=== PATIENT | male | born 1990 ===

== ENCOUNTER → 2025-01-24 | Outpatient (REF) | payer OTHER ==
[2025-01-24 14:20] LABS: SEMEN APPEARANCE OPAQUE (OPAQUE); SEMEN VISCOSITY LIQUID (LIQUID); SEMEN VOLUME 1.3 ML (2.0-5.0); SEMEN WBC <=1 M/ml (<=1 M/ml)
== END ==
LOC: M LAB REF 14:16
PROVIDERS: ATTEND Student in an Organized Health Care Education/Training Program
DX: N46.9 Male infertility, unspecified (principal)